=== PATIENT | female | born 1950 | race African-American/Black ===

== ENCOUNTER 2024-07-31 16:44 | Observation (INO) | payer BC, SELFPAY ==
[2024-07-31 09:45] VITALS: BMI 20.4
[2024-07-31 09:46] VITALS: BP 133/73
--- NOTE | 2024-07-31 09:49 | ED.GENMED ---
History of Present Illness
General
Chief Complaint: Cold/Flu/URI Symptoms
Source: patient
Exam Limitations: none
Time Seen by Provider: 07/31/24 09:43
History of Present Illness
History of Present Illness:
See MDM
Past History
Past History
ED Past Medical History: Psychiatric
ED Past Surgical History: Orthopedic
Social History
Tobacco: Smoker
Employment: Employed
Phy Exam
Physical Exam
Physical Exam:
See MDM
Course
Orders/Labs/Results
Orders:
Orders
07/31/24 09:44
Complete Blood Count/With Diff Urgent
Comprehensive Metabolic Panel Urgent
Lipase Urgent
INF RAPID [Influenza A+B Rapid Molecular] Urgent
ESTHER Source: Nasal Swab
Specimen Description:
07/31/24 09:48
0.9% Sodium Chloride 1000 ml [Nss] 1,000 ml IV BOLUS
Ondansetron Injectable [Zofran] 4 mg IV NOW STA
US Abdomen Complete/Upper Urgent
Comment:
Reason For Exam: RUQ pain
07/31/24 13:04
CT Abd/pel Without Iv Or Oral Urgent
Comment:
Reason For Exam: recent fall, left flank pain
07/31/24 13:27
Meclizine [Antivert] 25 mg PO NOW STA
07/31/24 15:40
CT Head W/o Iv Contrast Urgent
Comment:
Reason For Exam: persistent dizziness
Abnormal Lab Results
07/31/24
09:44
RBC 3.47 L 10^6/uL
(4.20-5.40)
Hgb 11.7 L g/dL
(12.0-16.0)
Hct 35.3 L %
(37.0-47.0)
MCV 101.7 H fL
(81.0-99.0)
MCH 33.7 H pg
(27.0-31.0)
Absolute Lymphs (auto) 0.9 L 10^3/uL
(1.2-3.4)
Absolute Monos (auto) 0.7 H 10^3/uL
(0.1-0.6)
Neutrophils % 78.5 H %
(42.2-75.2)
Lymphocytes % 11.3 L %
(20.5-51.1)
BUN 24 H mg/dl
(7-17)
Glucose 143 H mg/dl
(70-99)
Total Protein 6.0 L g/dl
(6.3-8.2)
Albumin 3.2 L g/dl
(3.5-5.0)
07/31/24 09:44
07/31/24 09:44
Vital Signs
Initial and Last Documented VS:
Initial Vital Signs
Temp Pulse Resp BP Pulse Ox
97.5 F 60 16 133/73 100
07/31/24 09:46 07/31/24 09:46 07/31/24 09:46 07/31/24 09:46 07/31/24 09:46
Last Documented Vital Signs
Temp Pulse Resp BP Pulse Ox
97.5 F 60 16 133/73 100
07/31/24 09:46 07/31/24 09:46 07/31/24 09:46 07/31/24 09:46 07/31/24 09:46
MDM/Problems Addressed
Differential Diagnosis Includes:
HPI and MDM Narrative:
73-year-old female presenting with nausea and flulike symptoms. Patient woke up this morning complaining of abdominal discomfort and dry heaving. Patient complains of chills and fevers. On arrival, patient is afebrile. She does appear very
nauseous. Will give IV fluids and Zofran. On my exam, she does have mild right upper quadrant tenderness. Given the location of discomfort, will obtain ultrasound to rule out gallbladder pathology
Physical exam
General: Well appearing and non-toxic
HEENT: protecting airway. Dry mucous membranes
Neck: appears supple
CV: No evidence of cyanosis
Resp: No accessory muscle use
Abd: Non-distended. Right upper quadrant tenderness
Extremities: No deformities
Neuro: alert
Psych: Normal affect
Skin: Intact
Problems Addressed including Acute and Chronic Conditions affecting care:
1. Abdominal pain and nausea
Acuity: acute
Prognosis: stable
Details: Will provide Zofran. Patient declined pain medicine. Will obtain ultrasound to rule out gallbladder pathology
Updates
Ultrasound negative and blood work without clinically significant abnormality. On reassessment, patient now complaining of left flank pain. She states she did have a recent fall and she is unsure if she irritate her arthritis. Given location of
pain, will obtain CT stone search
Patient developing vertiginous symptoms and nauseous. Will give dose of meclizine
CT negative for acute fracture or kidney stone pathology. When I reexamined the patient again, she is feeling somewhat better. Patient still appears unsteady on her feet. I explained the possibility of vertigo or possible stroke. I recommended
admission for further workup and evaluation. Patient states she has to go home to care for her and there is no friends or surrounding family that can care for him. She understands that if she leaves, we could be missing a diagnosis of
stroke or other pathology. She also understands my concern that if I send her home she could potentially fall and . She acknowledges all these concerns appears to have capacity understand
The was called and convince the patient to stay. Will obtain CT head and admit
Differential Diagnosis (but not limited to): Gallstones, pancreatitis, colitis
Testing considered: CT abdomen/pelvis but will obtain ultrasound first and reassess symptoms
Drug therapy (if applicable): OTC meds, please see d/c instruction regarding Rx drugs
Amount and/or Complexity of Data Reviewed
Clinical info obtained from: Patient
External data reviewed: N/A
Labs I independently reviewed (but not limited to): White blood cell count normal
Radiology: The CT scan was personally and independently reviewed. In addition, official CT report reviewed.
Pulse Ox: not hypoxic
EKG independently reviewed: N/A
Management Services Technician: N/A
Critical Care: N/A
Risk of Complication:
Social Determinants of health: Good social support
Discussed with other providers: Hospitalist
Escalation of Care includes Admit/Obs: Given the persistent dizziness, will admit
Occasional wrong word or 'sound a like' substitutions may have occurred due to the inherent limitations of voice recognition software. Read the chart carefully and recognize, using context, where substitutions have occurred.
*Critical Care Note
Total Time (30-74mins, 75-104mins- exclusive of procedures): Not Applicable
ED Attending Note
-
Portions of this chart may have been created with voice recognition software.� Occasional wrong word or��sound alike� substitutions may have occurred due to the inherent limitations of voice recognition software.
Discharge Plan
Departure
Patient Disposition: Home (Routine Discharge)
Date of Disposition: 07/31/24
Time of Disposition: 15:17
Patient with high blood pressure during this ER visit?: No
Discharge Problem:
Dizziness
Instructions: Dizziness in adults - ED discharge instructions
Prescriptions:
New
meclizine [Antivert] 25 mg Tablet,Chewable
25 mg PO BIDPRN PRN (Reason: nausea or vertigo) Qty: 10 0RF
No Action
hydrocodone-acetaminophen 5 MG/500 MG tablet
1 tab PO Q4HPRN PRN (Reason: PAIN) Qty: 20 0RF
Referrals:
Farhad Reynaga MD [Family Provider] -
Activity Restrictions/Additional Instructions:
Please return for any worsening symptoms.
You may return at any time if you have further concerns.
Please follow up with your doctor at the first available appointment, preferably this week. As we discussed, going home in this state is a bad idea. I am worried that you will become dizzy and fall. You could develop a head bleed. We could be
potentially missing a stroke.
Thank you for choosing [facility].
Interventions
Interventions:
*Risk Screen - Suicide Last Done: 07/31/24 09:46
*General Assessment Last Done: 07/31/24 09:46
*Neglect/Abuse Screening Last Done: 07/31/24 09:46
*ED- Fall Risk Assessment Last Done: 07/31/24 09:46
ED- Pulmonary Assessment Last Done: 07/31/24 09:46
Discharge Date and Time
Print Language: UKRAINIAN
[2024-07-31] MEDS: NSS 1000 IV ×2 (09:54→20:38)
[2024-07-31 10:13] LABS: % Basophils 0.4 % (0-2); % Eosinophils 1.2 % (0-6); % Immature Granulocytes 0.4 % (0-0.5); % Lymphocytes 11.3 % (20.5-51.1); % Monocytes 8.2 % (1.7-9.3); % Neutrophils 78.5 % (42.2-75.2); Absolute Eosinophils 0.1 10^3/uL (0-0.7); Absolute Lymphocytes 0.9 10^3/uL (1.2-3.4); Absolute Monocytes 0.7 10^3/uL (0.1-0.6); Absolute Neutrophils 6.5 10^3/uL (1.4-6.5); Hematocrit 35.3 % (37.0-47.0); Hemoglobin 11.7 g/dL (12.0-16.0); Mean Corp Hgb Conc. 33.1 g/dL (33.0-37.0); Mean Corpuscular Hgb 33.7 pg (27.0-31.0); Mean Corpuscular Volume 101.7 fL (81.0-99.0); Mean Platelet Volume 10.3 fL (7.4-10.4); Nucleated Red Blood Cells % 0 %; Platelet Count 218 10^3/uL (130-400); Red Blood Cell Count 3.47 10^6/uL (4.20-5.40); Red Cell Dist. Width 12.6 % (11.5-14.5); White Blood Cell Count 8.3 10^3/uL (4.8-10.8)
[2024-07-31 10:17] LABS: ALT (SGPT) < 10 U/L (0-35); AST (SGOT) 18 U/L (14-36); Albumin 3.2 g/dl (3.5-5.0); Alkaline Phosphatase 92 U/L (38-126); Blood Urea Nitrogen 24 mg/dl (7-17); Carbon Dioxide 28 mmol/L (22-30); Chloride 107 mmol/L (98-107); Estimated Creatinine Clearance 47 ml/min; Glucose 143 mg/dl (70-99); Lipase 37 U/L (23-300); Potassium 4.1 mmol/L (3.5-5.1); Sodium 141 mmol/L (135-145); Total Bilirubin 0.6 mg/dl (0.2-1.3); eGFR > 60.00
[2024-07-31 13:00] VITALS: BP 102/80
[2024-07-31] MEDS: ANTIVERT 25 MG PO ×2 (13:38→22:00)
[2024-07-31 14:00] VITALS: BP 118/86
--- NOTE | 2024-07-31 15:53 | HPS.HSE ---
Family Physician
-
Family Physician: Farhad Reynaga
Chief Complaint
-
Dizziness
History of Present Illness
Patient is a 73 y/o female past medical history of anxiety/depression and osteoarthritis who presents with dizziness. Patient reports she awoke this morning feeling very dizzy, described as a spinning sensation. She walking to the bathroom and
developed significant nausea and vomiting. Patient reports at one point when she tried to get up she fell due as she was dizzy and unsteady. She notes symptoms are much worse when she tries to move her head. She denies any prior episodes of
dizziness. She admits to increased difficulty with her hearing recently. She denies any focal numbness, tingling or weakness.
Medical History
Past Medical History
Past Medical History: Reports Other
Additional Past Medical History:
Anxiety / Depression
Osteoarthritis
Chronic Left Eye Blindness
Past Surgical History: Reports Other
Additional Past Surgical History:
Left Wrist Surgery
Social History
Tobacco: Former Smoker
Personal:
Living: With Family
Family History
Family History: Not pertinent
Allergies / Home Medications
Allergies reflects when Allergies were last updated in [facility].
Home Medications with original date entered in [facility]
Allergy/Medication List:
Allergies
Allergy/AdvReac Type Severity Reaction Status Date / Time
NKA - No Known Allergies Allergy Unknown Uncoded 10/29/09 16:25
Home Medications
celecoxib 200 mg capsule 200 mg PO DAILY 07/31/24
escitalopram oxalate 10 mg tablet 10 mg PO DAILY 07/31/24
Review of Systems
-
A 12 point ROS was completed and negative except as noted: Yes
Constitutional: Denies Fever
EENT: Denies Sore Throat or Runny Nose
Respiratory: Denies Cough
Cardiac: Denies Chest Pain or Palpitations
Physical Exam
Vital Signs
Vital Signs
Temp Pulse Resp BP Pulse Ox
97.5 F 76 12 118/86 100
07/31/24 09:46 07/31/24 15:23 07/31/24 15:23 07/31/24 14:00 07/31/24 13:01
Physical Exam
General: Comfortable and Conversant
HEENT: Anicteric and Other (Complete occlusion of right external auditory canal with impacted cerumen; Skin flaking in left external auditory canal making visualization of left tympanic membrane difficult but appears intact without erythema or
bulging appreciated); No Moist mucous membranes (Dry mucous membranes)
Respiratory: Clear and Non Labored Respirations
Cardiac: S1/S2 and Regular Rhythm
GI: Soft and Non Tender
Rectal: Deferred by Provider
Musculoskeletal: No Clubbing and No Cyanosis
Skin: Warm and Dry
Neuro: Awake, Alert, Oriented and Nonfocal/grossly intact
Psych: Calm
Laboratory Results
-
07/31/24 09:44
07/31/24 09:44
Laboratory Results
Total Bilirubin 0.6 mg/dl (0.2-1.3) 07/31/24 09:44
AST 18 U/L (14-36) 07/31/24 09:44
ALT < 10 U/L (0-35) 07/31/24 09:44
Alkaline Phosphatase 92 U/L (38-126) 07/31/24 09:44
Lipase 37 U/L (23-300) 07/31/24 09:44
Data Reviewed
-
CT Scan: Report Reviewed by me
Lab Data: Labs Reviewed by me
Impression/Plan
-
Vertigo, suspect BPPV vs secondary to impacted cerumen
-Consult PT/OT for vestibular therapy
-Continue meclizine PRN
-Check Brain MRI to rule out stroke, but low suspicion
Impacted Cerumen Right Ear
-Start Debrox drops
Anxiety / Depression
-Continue escitalopram
Osteoarthritis
-Hold Celebrex for now
DVT proph: SCDs
Code Status: Full Code
--- NOTE | 2024-07-31 16:54 | W.PN.UPDATE ---
Update Note
Progress Note Update
This is an addendum to the H&P written by Lillian Gillette on 07/31/2024.� Patient seen and examined independently with PA.
73-year-old female past medical history of anxiety, depression, arthritis presenting with vertigo which started this morning and occurs with head movements.� She fell today injuring her left flank.� Complained of some right upper quadrant pain and
left flank pain and some tenderness in RUQ after the fall.�
Recently had tooth come out few days ago and swelling in her right cheek which has improved. Concerned about tooth infection and notified dentist.�
Had vomiting.� No upper respiratory symptoms.� No fever.
She has had ear infections possibly otitis externa in the left ear most recently a year ago.� At this time, she has cerumen impaction in the right ear.
Vital signs are normal.
Abdominal ultrasound unremarkable.� CT abdomen pelvis shows no acute pathology.�
Patient with acute vertigo possibly BPPV versus secondary to cerumen impaction of right ear.
CT head pending.�
Give Debrox drops for cerumen impaction of right ear.� Check MRI to rule out CVA.� Meclizine as needed. Out�patient follow up ENT.�
Think abdominal pain is related to fall.�
[2024-07-31 19:13] VITALS: BP 107/58
[2024-07-31 19:40] VITALS: BP 102/69; BMI 18.7
[2024-07-31] MEDS: DEBROX EAR DROPS 5 DROP OTIC (20:37)
[2024-07-31 23:35] VITALS: BP 109/63
[2024-08-01] VITALS (7 sets, daily range): BP systolic 98–127; BP diastolic 54–68; PULSE 83
[2024-08-01] MEDS: TYLENOL 650 MG PO (03:30)
[2024-08-01] MEDS: DEBROX EAR DROPS 5 DROP OTIC ×2 (07:22→19:38)
[2024-08-01] MEDS: LEXAPRO 10 MG PO (07:22)
--- NOTE | 2024-08-01 11:07 | W.PN.HOSP.TC ---
Today's Communication/Plan
-
Total time spent on d/c = 31 min. This included today's physical exam, progress note, review of laboratory and diagnostic data, preparation of discharge documents and prescriptions, and discussions about the pt's hospital course and discharge plan
with the patient and other medical numerical control operator involved in the patient's care.
Assessment / Plan
Assessment / Plan
Gen: NAD, Awake and alert
Eyes: EOMI, PERRLA, no scleral icterus.
Neck: supple.
CV: RRR, +S1/S2, no m/r/g.
Resp: CTAB, no rales, wheezes, or rhonchi.
Abd: +BS, soft, NT, ND
Skin: No rashes.
Neuro: CN 2-12 intact, non-focal.
Psych: Normal mood and affect.
MRI brain: No acute infarct. Symmetric enlargement of the lateral sulcus. Possibly reflecting advanced atrophy with disproportionate involvement of the lateral sulcus, though other possible considerations include various syndromes or other
conditions such as Prader-Willi syndrome with schizophrenia. Symmetric moderate ventriculomegaly, which may reflect central greater than cortical atrophy. The possibility of normal pressure hydrocephalus may be considered in the proper clinical
setting.
Vertigo:
-suspect BPPV vs secondary to impacted cerumen
-Consult PT/OT for vestibular therapy
-Continue meclizine PRN
-Brain MRI without acute CVA
Impacted Cerumen Right Ear
-Start Debrox drops
Anxiety / Depression
-Continue escitalopram
Osteoarthritis
-Hold Celebrex for now
FULL/SCDs
Medically cleared for d/c.
Anticipated Discharge: Today
Subjective/Interval History
-
Date of Service: August 01, 2024
States dizziness has resolved.
Objective Data
-
Vital Signs:
Vital Signs
Temp Pulse Resp BP Pulse Ox
99.2 F 74 16 114/62 100
08/01/24 07:12 08/01/24 07:12 08/01/24 07:12 08/01/24 07:12 08/01/24 07:12
--- NOTE | 2024-08-01 14:53 | CM ---
Spoke with attending who stated that patient is medically stable for discharge. Met with Patient to obtain information for assessment. Patient stated she lives in a three story home with four steps to enter with her dependent spouse. Patient relayed
that she is usually independent at baseline. She can do all of her personal care, ADLs, bathing and dressing. 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 She drives and can get to all of her appointments and does her own shopping.
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
Patient has a prescription plan and uses, [facility] in [place] for all of her medications.
Her PCP is, Farhad Reynaga.
Spoke with PT/OT, both expressed a significant decline in level of functioning from her baseline. Spoke with patient about a SNF transfer as that is the indication from therapy staff and she declined as she stated that she did not want to be away
from her spouse for that long. Offer was then made to have VN services come out, however she declined that too, stating that her spouse would not like people in their house.
Patient stated that she has not really eaten since she started to experience the Vertigo which has been a few days. Patient ate breakfast. CM spoke with RN and there are no dietary restrictions. As this is the case, patient was encouraged to order
lunch as it was already 15:00 and then dinner to hopefully gain some strength. She did admit that the weakness could be secondary to not having any solid food or liquids in a few days. Patient stated that she would stay tonight if indicated.
Will complete medical necessity and transfer sheet for potential discharge tonight.
Attending updated.
RN and [facility] coordinator updated.
Observation letter provided. It was reviewed, signed and is now on chart.
Plan: Case management will continue to follow and assist with discharge planning. Patient refusing SNF and VN, PT OT services and therefore will return home. Patient is medically stable.
--- NOTE | 2024-08-01 16:14 | W.DCSUMMARY ---
Discharge Summary
Discharge Data
Date of Admission: 07/31/24
Date of Discharge: 08/01/24
-
Pending Results: No
Hospital Course
Primary diagnoses:
Peripheral vertigo
Secondary diagnoses:
Anxiety
Depression
Osteoarthritis
Consultants:
None
Imaging:
MRI brain: No acute infarct. Symmetric enlargement of the lateral sulcus. Possibly reflecting advanced atrophy with disproportionate involvement of the lateral sulcus, though other possible considerations include various syndromes or other
conditions such as Prader-Willi syndrome with schizophrenia. Symmetric moderate ventriculomegaly, which may reflect central greater than cortical atrophy. The possibility of normal pressure hydrocephalus may be considered in the proper clinical
setting.
Hospital course: 73-year-old female who presented yesterday afternoon with a chief complaint of dizziness as outlined in the H&P done on admission. The patient was admitted for MRI of the brain. The MRI of the brain showed no acute infarct. She
was noted to have impacted cerumen in the right ear and was placed on Debrox drops. On the day of discharge the patient reported that her vertigo had resolved. She was seen by physical therapy and Occupational Therapy and was unsteady on her feet.
The patient refused [facility] or visiting nurses. She was discharged in medically stable condition.
Discharge Plan
-
Patient Disposition: Home (Routine Discharge)
Discharge Diagnosis/Procedures: Peripheral vertigo
Condition: Good
Diet: No restrictions
Activity: As tolerated
Driving Restrictions: As prior to admission
Referrals:
Farhad Reynaga MD [Family Provider] - in less than 1 week
Prescriptions:
Continued
celecoxib 200 mg capsule
200 mg PO DAILY
escitalopram oxalate 10 mg tablet
10 mg PO DAILY
Discharge Orders:
Discharge Patient (As Directed); Ordered 08/01/24
Ordered By: Thaddeus Spear
Discharge Date and Time
Print Language: FIJIAN
== END 2024-08-01 21:05 | disposition home or self-care (01) ==
LOC: 4 EAST ACU 16:44
PROVIDERS: ADMITTING PHYSICIAN Hospitalist; ATTENDING PHYSICIAN Internal Medicine; EMERGENCY PHYSICIAN Student in an Organized Health Care Education/Training Program; FAMILY PHYSICIAN Family Medicine
DX: H81.399 Other peripheral vertigo, unspecified ear (principal); H61.21 Impacted cerumen, right ear; R10.11 Right upper quadrant pain; F17.200 Nicotine dependence, unspecified, uncomplicated; F41.9 Anxiety disorder, unspecified; F32.A Depression, unspecified; M19.90 Unspecified osteoarthritis, unspecified site; Z79.899 Other long term (current) drug therapy
CPT/HCPCS: 70450; 70551; 74176; 76700; 80053; 83690; 85025; 87502; 96374; 97163; 97167; 99285; G0378